=== PATIENT | female | born 1985 | race American Indian/Alaskan Native ===

== ENCOUNTER 2016-12-17 18:37 | Inpatient (IN) | payer MEDICAID, OTHER ==
[2016-12-17 19:56] LABS: Basophils % (Auto) 0.7 % (0.0-1.8); Eosinophils % (Auto) 3.1 % (0.0-4.3); Hematocrit 41.2 % (30.3-42.9); Hemoglobin 13.3 gm/dl (10.1-14.3); Mean Corpuscular HGB Conc 32 % (30-34); Mean Corpuscular Hemoglobin 28 pg (28-32); Mean Corpuscular Volume 87 fl (79-97); Platelet Count 179 K/mm3 (140-440); Red Blood Count 4.74 M/mm3 (3.65-5.03); Red Cell Distribution Width 14.2 % (13.2-15.2); White Blood Count 9.2 K/mm3 (4.5-11.0)
[2016-12-17 20:17] LABS: Anion Gap 26 mmol/L; BUN/Creatinine Ratio 18.75; Blood Urea Nitrogen 15 mg/dL (7-17); Calcium 8.7 mg/dL (8.4-10.2); Carbon Dioxide 17 mmol/L (22-30); Chloride 91.8 mmol/L (98-107); Potassium 4.4 mmol/L (3.6-5.0); Sodium 130 mmol/L (137-145)
[2016-12-17 20:25] LABS: Glucose 508 mg/dL (65-100)
[2016-12-17] MEDS ORDERED: NACL 0.9% 1000 ML 2,000 ML ONE (21:14)
[2016-12-17] MEDS ORDERED: D50W (25GM) IV PRN ×2 (21:38→22:44)
[2016-12-17] MEDS ORDERED: NACL 0.9% 1000 ML 1,000 ML IV ONE ×2 (21:38→21:39)
[2016-12-17] MEDS ORDERED: TORADOL IV ONE (21:45)
[2016-12-17 21:54] LABS: Bacteria,Urine 1+ /HPF (Negative); Bilirubin,Urine NEG (Negative); Blood,Urine SM (Negative); Ketones,Urine 80 mg/dL (Negative); Leukocyte Esterase,Urine NEG (Negative); Mucus,Urine FEW /HPF; Nitrite,Urine NEG (Negative); Protein,Urine <15 mg/dL mg/dL (Negative); RBC,Urine < 1.0 /HPF (0.0-6.0); Urobilinogen,Urine < 2.0 mg/dL (<2.0); WBC,Urine < 1.0 /HPF (0.0-6.0)
[2016-12-17] MEDS ORDERED: NovoLIN R 100 UNITS in NACL 0.9% 99 ML IV SCH (22:00)
--- NOTE | 2016-12-17 22:14 | Emergency Department Report ---
ED General Adult HPI - General Chief complaint: Hyperglycemia Stated complaint: HIGH BLOOD SUGAR Time Seen by Provider: 12/17/16 21:36 Source: patient Mode of arrival: Ambulatory Limitations: No Limitations - History of Present Illness Initial comments: 31-year-old female with a past medical history of insulin-dependent diabetes presents to the hospital complaining of elevated glucose and a running out and sent. Patient uses a Humalog insulin pump and administers boluses 3 times a day dependent on current glucose level and carbohydrate intake with meals. Patient was working for [employer] which unexpectedly closed without warning. Patient tried to receive her Humalog refill from the pharmacy and was told that her insurance was no longer active and the medication will be over $900. Patient could not afford the medication. Patient developing polyuria, nausea, vomiting and generalized fatigue today. History of DKA in the past. She complained of mild to moderate suprapubic menstrual cramps Severity scale (0 -10): 6 - Related Data Home Medications Medication Instructions Recorded Confirmed Last Taken Insulin Pump Cartridge [Cartridge 1 each SQ CONT 12/17/16 12/17/16 1 Day Ago Stamped] Allergies Allergy/AdvReac Type Severity Reaction Status Date / Time No Known Allergies Allergy Verified 06/26/13 20:21 ED Review of Systems ROS: Stated complaint: HIGH BLOOD SUGAR Other details as noted in HPI Comment: All other systems reviewed and negative Other: Constitutional: No fevers chills Eyes: No eye pain visual changes ENT: No ear pain or throat pain Neck: Denies pain Respiratory: Denies cough wheezing shortness of breath Cardiovascular: Denies chest pain GI: as per hpi : Denies dysuria Musculoskeletal: Denies back pain Skin: Denies rash, lesions, erythema Neurologic: Denies headache, numbness, weakness Psychiatric: Denies suicidal ideation, hallucinations ED Past Medical Hx - Past Medical History Previous Medical History?: Yes Hx Diabetes: Yes (IDDM) Hx Headaches / Migraines: Yes - Surgical History Past Surgical History?: No - Social History Smoking Status: Never Smoker Substance Use Type: None - Medications Home Medications: Home Medications Medication Instructions Recorded Confirmed Last Taken Type Insulin Pump Cartridge [Cartridge 1 each SQ CONT 12/17/16 12/17/16 1 Day Ago History Stamped] ED Physical Exam - General Limitations: No Limitations - Other Other exam information: General: No limitations, patient is alert in no acute distress Head exam: Atraumatic, normocephalic Eyes exam: Normal appearance, pupils equal reactive to light, extraocular movements intact ENT: Moist mucous membrane, normal oropharynx Neck exam: Normal inspection, full range of motion, no meningismus nontender Respiratory exam: Clear to auscultation bilateral, no wheezes, rales, crackles Cardiovascular: Normal rate and rhythm, normal heart sounds Abdomen: Soft, nondistended, and nontender, with normal bowel sounds, no rebound, or guarding Extremity: Full range of motion normal inspection no deformity Back: Normal Inspection, full range of motion, no tenderness Neurologic: Alert, oriented x3, cranial nerves intact, no motor or sensory deficit Psychiatric: normal affect, normal mood Skin: Warm, dry, intact ED Course Vital Signs 12/17/16 12/17/16 19:22 21:32 Temperature 98.3 F Pulse Rate 103 H 91 H Respiratory 20 18 Rate Blood Pressure 116/72 Blood Pressure 122/74 [Left] O2 Sat by Pulse 98 99 Oximetry - Reevaluation(s) Reevaluation #1: 12/17/16 22:42 Patient treated in the ED with insulin bolus followed by insulin drip and normal saline 2 L. Placed on DKA protocol ED Medical Decision Making - Lab Data Result diagrams: 12/17/16 19:40 12/17/16 19:40 Lab Results 12/17/16 12/17/16 12/17/16 Range/Units 19:25 19:40 19:40 WBC 9.2 (4.5-11.0) K/mm3 RBC 4.74 (3.65-5.03) M/mm3 Hgb 13.3 (10.1-14.3) gm/dl Hct 41.2 (30.3-42.9) % MCV 87 (79-97) fl MCH 28 (28-32) pg MCHC 32 (30-34) % RDW 14.2 (13.2-15.2) % Plt Count 179 (140-440) K/mm3 Lymph % (Auto) 21.5 (13.4-35.0) % [place] % (Auto) 7.2 (0.0-7.3) % Eos % (Auto) 3.1 (0.0-4.3) % Baso % (Auto) 0.7 (0.0-1.8) % Lymph # 2.0 (1.2-5.4) K/mm3 [place] # 0.7 (0.0-0.8) K/mm3 Eos # 0.3 (0.0-0.4) K/mm3 Baso # 0.1 (0.0-0.1) K/mm3 Seg Neutrophils % 67.5 (40.0-70.0) % Seg Neutrophils # 6.2 (1.8-7.7) K/mm3 VBG pH (7.320-7.420) Sodium 130 L (137-145) mmol/L Potassium 4.4 (3.6-5.0) mmol/L Chloride 91.8 L (98-107) mmol/L Carbon Dioxide 17 L (22-30) mmol/L Anion Gap 26 mmol/L BUN 15 (7-17) mg/dL Creatinine 0.8 (0.7-1.2) mg/dL Estimated GFR > 60 ml/min BUN/Creatinine Ratio 18.75 % Glucose 508 H* (65-100) mg/dL POC Glucose 469 H (70-105) Calcium 8.7 (8.4-10.2) mg/dL Urine Color (Yellow) Urine Turbidity (Clear) Urine pH (5.0-7.0) Ur Specific [place] (1.003-1.030) Urine Protein (Negative) mg/dL Urine Glucose (UA) (Negative) mg/dL Urine Ketones (Negative) mg/dL Urine Blood (Negative) Urine Nitrite (Negative) Urine Bilirubin (Negative) Urine Urobilinogen (<2.0) mg/dL Ur Leukocyte Esterase (Negative) Urine WBC (Auto) (0.0-6.0) /HPF Urine RBC (Auto) (0.0-6.0) /HPF U Epithel Cells (Auto) (0-13.0) /HPF Urine Bacteria (Auto) (Negative) /HPF Urine Mucus /HPF Urine HCG, Qual (Negative) 12/17/16 12/17/16 12/17/16 Range/Units 19:40 21:17 Unknown WBC (4.5-11.0) K/mm3 RBC (3.65-5.03) M/mm3 Hgb (10.1-14.3) gm/dl Hct (30.3-42.9) % MCV (79-97) fl MCH (28-32) pg MCHC (30-34) % RDW (13.2-15.2) % Plt Count (140-440) K/mm3 Lymph % (Auto) (13.4-35.0) % [place] % (Auto) (0.0-7.3) % Eos % (Auto) (0.0-4.3) % Baso % (Auto) (0.0-1.8) % Lymph # (1.2-5.4) K/mm3 [place] # (0.0-0.8) K/mm3 Eos # (0.0-0.4) K/mm3 Baso # (0.0-0.1) K/mm3 Seg Neutrophils % (40.0-70.0) % Seg Neutrophils # (1.8-7.7) K/mm3 VBG pH 7.310 L (7.320-7.420) Sodium (137-145) mmol/L Potassium (3.6-5.0) mmol/L Chloride (98-107) mmol/L Carbon Dioxide (22-30) mmol/L Anion Gap mmol/L BUN (7-17) mg/dL Creatinine (0.7-1.2) mg/dL Estimated GFR ml/min BUN/Creatinine Ratio % Glucose (65-100) mg/dL POC Glucose > 500 H (70-105) Calcium (8.4-10.2) mg/dL Urine Color Straw (Yellow) Urine Turbidity Clear (Clear) Urine pH 6.0 (5.0-7.0) Ur Specific [place] 1.024 (1.003-1.030) Urine Protein <15 mg/dl (Negative) mg/dL Urine Glucose (UA) >=500 (Negative) mg/dL Urine Ketones 80 (Negative) mg/dL Urine Blood Sm (Negative) Urine Nitrite Neg (Negative) Urine Bilirubin Neg (Negative) Urine Urobilinogen < 2.0 (<2.0) mg/dL Ur Leukocyte Esterase Neg (Negative) Urine WBC (Auto) < 1.0 (0.0-6.0) /HPF Urine RBC (Auto) < 1.0 (0.0-6.0) /HPF U Epithel Cells (Auto) 1.0 (0-13.0) /HPF Urine Bacteria (Auto) 1+ (Negative) /HPF Urine Mucus Few /HPF Urine HCG, Qual (Negative) 12/17/16 Range/Units Unknown WBC (4.5-11.0) K/mm3 RBC (3.65-5.03) M/mm3 Hgb (10.1-14.3) gm/dl Hct (30.3-42.9) % MCV (79-97) fl MCH (28-32) pg MCHC (30-34) % RDW (13.2-15.2) % Plt Count (140-440) K/mm3 Lymph % (Auto) (13.4-35.0) % [place] % (Auto) (0.0-7.3) % Eos % (Auto) (0.0-4.3) % Baso % (Auto) (0.0-1.8) % Lymph # (1.2-5.4) K/mm3 [place] # (0.0-0.8) K/mm3 Eos # (0.0-0.4) K/mm3 Baso # (0.0-0.1) K/mm3 Seg Neutrophils % (40.0-70.0) % Seg Neutrophils # (1.8-7.7) K/mm3 VBG pH (7.320-7.420) Sodium (137-145) mmol/L Potassium (3.6-5.0) mmol/L Chloride (98-107) mmol/L Carbon Dioxide (22-30) mmol/L Anion Gap mmol/L BUN (7-17) mg/dL Creatinine (0.7-1.2) mg/dL Estimated GFR ml/min BUN/Creatinine Ratio % Glucose (65-100) mg/dL POC Glucose (70-105) Calcium (8.4-10.2) mg/dL Urine Color (Yellow) Urine Turbidity (Clear) Urine pH (5.0-7.0) Ur Specific [place] (1.003-1.030) Urine Protein (Negative) mg/dL Urine Glucose (UA) (Negative) mg/dL Urine Ketones (Negative) mg/dL Urine Blood (Negative) Urine Nitrite (Negative) Urine Bilirubin (Negative) Urine Urobilinogen (<2.0) mg/dL Ur Leukocyte Esterase (Negative) Urine WBC (Auto) (0.0-6.0) /HPF Urine RBC (Auto) (0.0-6.0) /HPF U Epithel Cells (Auto) (0-13.0) /HPF Urine Bacteria (Auto) (Negative) /HPF Urine Mucus /HPF Urine HCG, Qual Negative (Negative) - Medical Decision Making Plan to admit patient to the hospital for early DKA likely secondary medication noncompliance. Patient would need a new plan for more affordable medications and possible help with Medicaid application. - Differential Diagnosis DKA, hyperglycemia, medication noncompliance Critical Care Time: No Critical care attestation.: If time is entered above; I have spent that time in minutes in the direct care of this critically ill patient, excluding procedure time. ED Disposition Clinical Impression: DKA (diabetic ketoacidoses), Diabetes 1.5, managed as type 1, Noncompliance with medication regimen Disposition: OP ADMITTED IP TO THIS HOSP Is pt being admited?: Yes Condition: Stable Time of Disposition: 22:14 (Dr Hunter/hosp)
[2016-12-17] MEDS ORDERED: DULCOLAX PR PRN (22:39)
[2016-12-17] MEDS ORDERED: PERCOCET 5/325 PO PRN (22:39)
[2016-12-17] MEDS ORDERED: TYLENOL PO PRN (22:39)
[2016-12-17] MEDS ORDERED: MILK OF MAGNESIA PO PRN (22:39)
[2016-12-17] MEDS ORDERED: ZOFRAN IV PRN (22:39)
--- NOTE | 2016-12-17 22:46 | History and Physical Report ---
History of Present Illness Date of examination: 12/17/16 History of present illness: 31-year-old woman history of diabetes type 1 comes emergency room with complaints of nausea vomiting, feeling tired, frequent urination. Patient ran out of her insulin Patient denies chest pain, palpitation, shortness of breath, cough, abdominal pain, hematochezia, dysuria, focal weakness, dysarthria, fever chills, polydipsia polyuria, hot or cold intolerance, easy bruisability, or rash or bleeding from mucosal membrane, rhinorrhea, epistaxis, earache, tinnitus, blurry vision, eye discharge, anxiety, depression. Other review of systems negative PAST SURGICAL HISTORY: None SOCIAL HISTORY: Denies alcohol, tobacco, drugs FAMILY HISTORY: Diabetes Medications and Allergies Allergies Allergy/AdvReac Type Severity Reaction Status Date / Time No Known Allergies Allergy Verified 06/26/13 20:21 Home Medications Medication Instructions Recorded Confirmed Last Taken Type Insulin Pump Cartridge [Cartridge 1 each SQ CONT 12/17/16 12/17/16 1 Day Ago History Stamped] Active Meds: Active Medications Acetaminophen (Tylenol) 650 mg PO Q4H PRN PRN Reason: Pain MILD(1-3)/Fever >100.5/BERGMAN Bisacodyl (Dulcolax) 10 mg [place] QDAY PRN PRN Reason: Constipation unrelieved by MOM Dextrose (D50w (25gm)) 0 ml IV PRN PRN PRN Reason: Hypoglycemia Enoxaparin Sodium (Lovenox) 30 mg SUB-Q QDAY ZEHRA Insulin Human Regular 100 (units/ Sodium Chloride) 100 mls @ 1 mls/hr IV TITR ZEHRA; 1 UNITS/HR PRN Reason: Protocol Dextrose/Sodium Chloride (D5/0.45ns) 1,000 mls @ 150 mls/hr IV DIRECT ZEHRA Sodium Chloride (Nacl 0.9% 1000 Ml) 1,000 mls @ 150 mls/hr IV DIRECT ZEHRA Magnesium Hydroxide (Milk Of Magnesia) 30 ml PO Q4H PRN PRN Reason: Constipation Ondansetron HCl (Zofran) 4 mg IV Q8H PRN PRN Reason: N/V unrelieved by Reglan Oxycodone/Acetaminophen (Percocet 5/325) 1 tab PO Q6H PRN PRN Reason: Pain, Moderate (4-6) Exam - Physical Exam Narrative exam: Gen. appearance: Patient lying in bed, no apparent distress HEENT: Normocephalic, atraumatic, pupils equally round and reactive to light, extraocular movement intact, and no sclericterus,. No JVD or thyromegaly or nodule,neck supple, no carotid bruit ,mucous membranes moist, no exudate or erythema Heart: S1, S2, regular rate and rhythm Lungs: Clear to auscultation bilaterally, breathing comfortable Abdomen: Positive bowel sounds, nontender, nondistended, no organomegaly Extremity: No edema, cyanosis, clubbing Skin: No rash, nodules, warm, dry Neuro: Oriented 3, cranial nerves II-12 intact, speech is fluent, motor and sensory intact - Constitutional Vitals: Temp Pulse Resp BP Pulse Ox 98.3 F 91 H 18 122/74 99 12/17/16 19:22 12/17/16 21:32 12/17/16 21:32 12/17/16 21:32 12/17/16 21:32 Results - Labs CBC & Chem 7: 12/17/16 19:40 12/17/16 23:02 Labs: Abnormal lab results 12/17/16 12/17/16 12/17/16 Range/Units 19:25 19:40 19:40 VBG pH 7.310 L (7.320-7.420) Sodium 130 L (137-145) mmol/L Chloride 91.8 L (98-107) mmol/L Carbon Dioxide 17 L (22-30) mmol/L Glucose 508 H* (65-100) mg/dL POC Glucose 469 H (70-105) 12/17/16 Range/Units 21:17 VBG pH (7.320-7.420) Sodium (137-145) mmol/L Chloride (98-107) mmol/L Carbon Dioxide (22-30) mmol/L Glucose (65-100) mg/dL POC Glucose > 500 H (70-105) Assessment and Plan DKA Start IV fluids, insulin drip Check serial chemistry, blood sugar Consult critical care, start DVT prophylaxis
[2016-12-17] MEDS ORDERED: D5/0.45NS 1,000 ML IV SCH (23:00)
[2016-12-17 23:49] LABS: Anion Gap 22 mmol/L; Blood Urea Nitrogen 14 mg/dL (7-17); Carbon Dioxide 16 mmol/L (22-30); Chloride 101.9 mmol/L (98-107); Glucose 311 mg/dL (65-100); Potassium 3.7 mmol/L (3.6-5.0); Sodium 136 mmol/L (137-145)
[2016-12-18] MEDS: NACL 0.9% 1000 ML 1,000 ML IV SCH (00:40)
[2016-12-18 04:30] LABS: Anion Gap 19 mmol/L; BUN/Creatinine Ratio 18.33; Blood Urea Nitrogen 11 mg/dL (7-17); Calcium 7.6 mg/dL (8.4-10.2); Carbon Dioxide 17 mmol/L (22-30); Chloride 103.9 mmol/L (98-107); Glucose 161 mg/dL (65-100); Potassium 3.9 mmol/L (3.6-5.0); Sodium 136 mmol/L (137-145)
[2016-12-18 04:41] LABS: Red Blood Count 4.02 M/mm3 (3.65-5.03); White Blood Count 8.8 K/mm3 (4.5-11.0)
[2016-12-18 04:42] LABS: Hematocrit 36.2 % (30.3-42.9); Hemoglobin 12.4 gm/dl (10.1-14.3)
[2016-12-18 04:43] LABS: Basophils % (Auto) 0.7 % (0.0-1.8); Eosinophils % (Auto) 3.1 % (0.0-4.3); Mean Corpuscular HGB Conc 34 % (30-34); Mean Corpuscular Hemoglobin 28 pg (28-32); Mean Corpuscular Volume 85 fl (79-97); Platelet Count 178 K/mm3 (140-440)
--- NOTE | 2016-12-18 07:03 | Admit Criteria Form ---
Admission Criteria Documentation: DIABETES Clinical Indications for Admission to Inpatient Care (Place 'X' for any and all applicable criteria): Admission is indicated by presence of ALL (if I & II) or ANY ONE (if III or IV) of the following (1)(2)(3)(4): [X ]I. Diabetes is uncontrolled as indicated by ANY ONE of the following: [X ]a) Diabetic ketoacidosis as indicated by ALL of the following (8): [ X]i) Hyperglycemia (eg, plasma glucose greater than 200 mg /dL (11.1 mmol/L)) [ X]ii) Acidosis (eg, arterial pH less than 7.30, serum bicarbonate level less than 15 mEq/L (mmol/L)) [ X]iii) Moderate ketonuria or ketonemia [ ]b) Hyperglycemic hyperosmolar state as indicated by ALL of the following(9)(10): [ ]i) Neurologic dysfunction (eg, stupor, coma, hemiparesis , seizure)(13) [ ]ii) Plasma glucose greater than 600 mg/dL (33.3 mmol/L) [ ]iii) Serum osmolality greater than 320 mOsm/kg (mmol/kg) [ ]c) Severe signs or symptoms secondary to hyperglycemia indicated by ANY ONE of the following: [ ]i) Altered mental status(10) [ ]ii) Significant hypovolemia or dehydration [ ]iii) Intractable nausea or vomiting [ ]iv) Unexplained fever or severe infection [ ]v) Severe electrolyte abnormality (eg, hypokalemia, hyperkalemia, hypernatremia) [X ]II. Management at other levels of care (Also use Diabetes: Observation Care as appropriate) is not feasible because of ANY ONE of the following: [X ]a) Condition was not adequately corrected with treatment at other levels of care. [ ]b) Treatment at other levels of care is not appropriate because of condition severity (eg, hyperosmolar coma). [ ]III. Contraindications and/or Inappropriate clinical situations for Observational Care in patients with Diabetes, when ANY ONE of the following is required: [ ]a) Patient require specific diagnostic workup or therapeutic intervention 22 [ ]b) Patient with abnormal vital signs or altered mental status 23 [ ]IV. General contraindications and/or Inappropriate clinical situations for Observational Care in patients with Diabetes, when ANY ONE of the following is required: [ ]a) Prediction of prolongation of LOS based on ANY ONE of the following may be considered as a contraindication for observational care 2, 3, 4, 5, 6, 7, 8, 9, 10, 11 [ ]i) Age > 65 yrs. [ ]ii) Patient arriving by ambulance [ ]iii) Patient with high acuity [ ]iv) Patient requiring vital sign monitoring [ ]v) Patient on IV medication [ ]b) Systolic blood pressures 180mmHg 3,12 [ ]c) Patient with altered mental status including delirium and other alteration of consciousness, (3) [ ]d) Patient whose discharge disposition will be to a residential home or rehabilitation home should not be managed in Emergency Department Observation Unit. CMS rule requires 3 days hospital stay before such placement.3,13 [ ]e) Patient with failure to thrive due to broad array of etiologies 3,16,17 [ ]f) Inability to ambulate 3,14 Extended stay beyond goal length of stay may be needed for(3)(20): [ ]a) Treatment of precipitating causes [ ]b) Development of hypoglycemia [ ]c) Complications of treatment [ ]d) Complications of decompensated diabetes (eg, acute gastric dilatation, persistent metabolic or neurologic derangement) [ ]e) Active Comorbidities [ ]f) Older patients( 65 years or older) The original [employer] content created by [employer] has been revised. The portions of the content which have been revised are identified through the use of italic text or in bold,and [facility] has neither reviewed nor approved the modified material. All other unmodified content is copyright [employer]. Please see references footnoted in the original [facility] edition 2016 Admission Criteria Met: Yes
[2016-12-18] MEDS ORDERED: NOVOLOG SUB-Q ONE ×3 (08:46→19:52)
[2016-12-18 09:31] LABS: Anion Gap 16 mmol/L; BUN/Creatinine Ratio 12.85; Blood Urea Nitrogen 9 mg/dL (7-17); Calcium 8.1 mg/dL (8.4-10.2); Carbon Dioxide 21 mmol/L (22-30); Chloride 105.9 mmol/L (98-107); Glucose 137 mg/dL (65-100); Potassium 4.1 mmol/L (3.6-5.0); Sodium 139 mmol/L (137-145)
[2016-12-18] MEDS: LOVENOX SUB-Q SCH (09:56)
[2016-12-18] MEDS ORDERED: D50W (25GM) IV PRN (10:00)
[2016-12-18] MEDS ORDERED: LOVENOX SUB-Q SCH (10:00)
[2016-12-18] MEDS: NOVOLOG SUB-Q SCH ×3 (11:51→23:00)
--- NOTE | 2016-12-18 14:19 | Progress Note ---
Assessment and Plan Assessment and plan: 31-year-old woman history of diabetes type 1 comes emergency room with complaints of nausea vomiting, feeling tired, frequent urination. Patient ran out of her insulin * DKA * Diabetes mellitus type 1 Plan * Switch to scheduled insulin * Downgrade to med surg * counselling provided in detail * Anticipate discharge in am * Case management consult for social service support * DVT/GI prophy * Plan of care discussed with patient in detail History Interval history: Patient seen and examined, in no acute distress. Resting comfortable. No other acute event reported today by nursing staff. Hospitalist Physical - Physical exam Narrative exam: VITAL SIGNS: Reviewed. GENERAL: The patient appeared well nourished and normally developed. Vital signs as documented. HEAD: No signs of head trauma. EYES: Pupils are equal. Extraocular motions intact. EARS: Hearing grossly intact. MOUTH: Oropharynx is normal. NECK: No adenopathy, no JVD. CHEST: Chest with clear breath sounds bilaterally. No wheezes, rales, or rhonchi. CARDIAC: Regular rate and rhythm. S1 and S2, without murmurs, gallops, or rubs. VASCULAR: No Edema. Peripheral pulses normal and equal in all extremities. ABDOMEN: Soft, without detectable tenderness. No sign of distention. No rebound or guarding, and no masses palpated. Bowel Sounds normal. MUSCULOSKELETAL: Good range of motion of all major joints. Extremities without clubbing, cyanosis or edema. NEUROLOGIC EXAM: Alert and oriented x 3. No focal sensory or strength deficits. Speech normal. Follows commands. PSYCHIATRIC: Mood normal. SKIN: No rash or lesions. - Constitutional Vitals: Temp Pulse Resp BP Pulse Ox 98.3 F 91 H 18 126/94 98 12/17/16 19:22 12/18/16 13:00 12/18/16 13:00 12/18/16 13:00 12/18/16 13:00 Results - Labs CBC & Chem 7: 12/18/16 03:52 12/18/16 08:47 Labs: Laboratory Last Values WBC 8.8 K/mm3 (4.5-11.0) 12/18/16 03:52 RBC 4.02 M/mm3 (3.65-5.03) 12/18/16 03:52 Hgb 12.4 gm/dl (10.1-14.3) 12/18/16 03:52 Hct 36.2 % (30.3-42.9) 12/18/16 03:52 MCV 85 fl (79-97) 12/18/16 03:52 MCH 28 pg (28-32) 12/18/16 03:52 MCHC 34 % (30-34) 12/18/16 03:52 RDW 14.0 % (13.2-15.2) 12/18/16 03:52 Plt Count 178 K/mm3 (140-440) 12/18/16 03:52 Lymph % (Auto) 29.0 % (13.4-35.0) 12/18/16 03:52 [place] % (Auto) 10.5 % (0.0-7.3) H 12/18/16 03:52 Eos % (Auto) 3.1 % (0.0-4.3) 12/18/16 03:52 Baso % (Auto) 0.7 % (0.0-1.8) 12/18/16 03:52 Lymph # 2.5 K/mm3 (1.2-5.4) 12/18/16 03:52 [place] # 0.9 K/mm3 (0.0-0.8) H 12/18/16 03:52 Eos # 0.3 K/mm3 (0.0-0.4) 12/18/16 03:52 Baso # 0.1 K/mm3 (0.0-0.1) 12/18/16 03:52 Seg Neutrophils % 56.7 % (40.0-70.0) 12/18/16 03:52 Seg Neutrophils # 5.0 K/mm3 (1.8-7.7) 12/18/16 03:52 VBG pH 7.310 (7.320-7.420) L 12/17/16 19:40 Sodium 139 mmol/L (137-145) 12/18/16 08:47 Potassium 4.1 mmol/L (3.6-5.0) 12/18/16 08:47 Chloride 105.9 mmol/L (98-107) 12/18/16 08:47 Carbon Dioxide 21 mmol/L (22-30) L 12/18/16 08:47 Anion Gap 16 mmol/L 12/18/16 08:47 BUN 9 mg/dL (7-17) 12/18/16 08:47 Creatinine 0.7 mg/dL (0.7-1.2) 12/18/16 08:47 Estimated GFR > 60 ml/min 12/18/16 08:47 BUN/Creatinine Ratio 12.85 % 12/18/16 08:47 Glucose 137 mg/dL (65-100) H 12/18/16 08:47 POC Glucose 141 (70-105) H 12/18/16 08:43 Hemoglobin A1c 9.0 % (4-6) H 12/17/16 23:02 Calcium 8.1 mg/dL (8.4-10.2) L 12/18/16 08:47 Phosphorus 2.40 mg/dL (2.5-4.5) L 12/17/16 23:02 Magnesium 1.80 mg/dL (1.7-2.3) 12/17/16 23:02 Urine Color Straw (Yellow) 12/17/16 Unknown Urine Turbidity Clear (Clear) 12/17/16 Unknown Urine pH 6.0 (5.0-7.0) 12/17/16 Unknown Ur Specific [place] 1.024 (1.003-1.030) 12/17/16 Unknown Urine Protein <15 mg/dl mg/dL (Negative) 12/17/16 Unknown Urine Glucose (UA) >=500 mg/dL (Negative) 12/17/16 Unknown Urine Ketones 80 mg/dL (Negative) 12/17/16 Unknown Urine Blood Sm (Negative) 12/17/16 Unknown Urine Nitrite Neg (Negative) 12/17/16 Unknown Urine Bilirubin Neg (Negative) 12/17/16 Unknown Urine Urobilinogen < 2.0 mg/dL (<2.0) 12/17/16 Unknown Ur Leukocyte Esterase Neg (Negative) 12/17/16 Unknown Urine WBC (Auto) < 1.0 /HPF (0.0-6.0) 12/17/16 Unknown Urine RBC (Auto) < 1.0 /HPF (0.0-6.0) 12/17/16 Unknown U Epithel Cells (Auto) 1.0 /HPF (0-13.0) 12/17/16 Unknown Urine Bacteria (Auto) 1+ /HPF (Negative) 12/17/16 Unknown Urine Mucus Few /HPF 12/17/16 Unknown Urine HCG, Qual Negative (Negative) 12/17/16 Unknown
[2016-12-18 16:49] LABS: Anion Gap 19 mmol/L; BUN/Creatinine Ratio 11.11; Blood Urea Nitrogen 10 mg/dL (7-17); Calcium 8.3 mg/dL (8.4-10.2); Carbon Dioxide 21 mmol/L (22-30); Chloride 97.7 mmol/L (98-107); Glucose 438 mg/dL (65-100); Potassium 4.5 mmol/L (3.6-5.0); Sodium 133 mmol/L (137-145)
[2016-12-18] MEDS ORDERED: NACL 0.9% 1000 ML 1,000 ML IV ONE ×2 (19:45→22:58)
[2016-12-18 21:56] LABS: Anion Gap 15 mmol/L; BUN/Creatinine Ratio 14.44; Blood Urea Nitrogen 13 mg/dL (7-17); Calcium 8.4 mg/dL (8.4-10.2); Carbon Dioxide 23 mmol/L (22-30); Chloride 100.3 mmol/L (98-107); Glucose 357 mg/dL (65-100); Potassium 3.8 mmol/L (3.6-5.0); Sodium 134 mmol/L (137-145)
[2016-12-18 23:42] LABS: Anion Gap 16 mmol/L; BUN/Creatinine Ratio 15.71; Blood Urea Nitrogen 11 mg/dL (7-17); Carbon Dioxide 21 mmol/L (22-30); Chloride 103.7 mmol/L (98-107); Glucose 268 mg/dL (65-100); Potassium 4.1 mmol/L (3.6-5.0); Sodium 137 mmol/L (137-145)
[2016-12-19] MEDS ORDERED: NACL 0.9% 1000 ML 1,000 ML IV ONE (01:00)
[2016-12-19] MEDS: NACL 0.9% 1000 ML 1,000 ML IV SCH (06:33)
--- NOTE | 2016-12-19 07:07 | Discharge Summary ---
Providers - Providers Date of Admission: 12/17/16 22:39 Date of discharge: 12/19/16 Attending physician: TY AGUIRRE MD Hospitalization Reason for admission: dka Condition: Stable Hospital course: 31-year-old woman history of diabetes type 1 comes emergency room with complaints of nausea vomiting, feeling tired, frequent urination. Patient ran out of her insulin, she uses insulin pump but ran out and also is not complaint with diet. she was started on protocol and corrected and is now stable for discharge. the patient continued while in the hospital to get lots of food from outside and received extensive counselling on need to change. Patient denies chest pain, palpitation, shortness of breath, cough, abdominal pain, hematochezia, dysuria, focal weakness, dysarthria, fever chills, polydipsia polyuria, hot or cold intolerance, easy bruisability, or rash or bleeding from mucosal membrane, rhinorrhea, epistaxis, earache, tinnitus, blurry vision, eye discharge, anxiety, depression. Other review of systems negative Discharge Diagnosis * DKA * Uncontrolled Type 1 DM * Sinus tachycardia secondary to DKA Disposition: DISCHARGED TO HOME OR SELFCARE Time spent for discharge: 35 mins Core Measure Documentation - Palliative Care Palliative Care/ Comfort Measures: Palliative Care/Comfort Measures - Core Measures Any of the following diagnoses?: none - VTE Discharge Requirements Deep Vein Thrombosis/Pulmonary Embolism Present on Admission: No Exam - Physical Exam Narrative exam: VITAL SIGNS: Reviewed. GENERAL: The patient appeared well nourished and normally developed. Vital signs as documented. HEAD: No signs of head trauma. EYES: Pupils are equal. Extraocular motions intact. EARS: Hearing grossly intact. MOUTH: Oropharynx is normal. NECK: No adenopathy, no JVD. CHEST: Chest with clear breath sounds bilaterally. No wheezes, rales, or rhonchi. CARDIAC: Regular rate and rhythm. S1 and S2, without murmurs, gallops, or rubs. VASCULAR: No Edema. Peripheral pulses normal and equal in all extremities. ABDOMEN: Soft, without detectable tenderness. No sign of distention. No rebound or guarding, and no masses palpated. Bowel Sounds normal. MUSCULOSKELETAL: Good range of motion of all major joints. Extremities without clubbing, cyanosis or edema. NEUROLOGIC EXAM: Alert and oriented x 3. No focal sensory or strength deficits. Speech normal. Follows commands. PSYCHIATRIC: Mood normal. SKIN: No rash or lesions. - Constitutional Vitals: Temp Pulse Resp BP Pulse Ox 97.9 F 109 H 20 136/90 96 12/18/16 23:56 12/18/16 23:56 12/18/16 23:56 12/18/16 23:56 12/18/16 23:56 Plan Activity: advance as tolerated, fall precautions Diet: diabetic Special Instructions: record blood sugar diary Additional Instructions: If pateint cannot obtain or continue insulin pump due to cost. She should change to 70/30 bid. Must be complaint with diabetic diet. Must have yearly podiatry and opthalmologist exam Follow up with: RADHA MELENDEZ [Other] - 7 Days Prescriptions: Insulin NPH/Regular [NovoLIN 70/30] 15 unit SUB-Q BIDDIAB 30 Days
[2016-12-19] MEDS: NOVOLOG SUB-Q SCH ×2 (07:55→12:41)
[2016-12-19 09:17] VITALS: BP 106/65
[2016-12-19] MEDS: LOVENOX SUB-Q SCH (09:42)
== END 2016-12-19 14:50 | disposition home or self-care (01) | DRG 639 ==
LOC: ED 18:37 → CC1 22:39 → 3A 12-18 14:26
PROVIDERS: ADMIT Internal Medicine; ATTEND Internal Medicine
DX: E10.10 Type 1 diabetes mellitus with ketoacidosis without coma (principal); R00.0 Tachycardia, unspecified; Z51.5 Encounter for palliative care; Z79.4 Long term (current) use of insulin; Z91.14 Patient's other noncompliance with medication regimen; Z91.11 Patient's noncompliance with dietary regimen; Z83.3 Family history of diabetes mellitus
CPT/HCPCS: 36415; 80048; 81001; 81025; 82805; 82947; 82962; 83036; 83735; 84100; 85025; 96361; 96372; 96374; 96375; J1650; J1815; J1885; J2405; J7030

== ENCOUNTER 2017-08-06 19:05 | Emergency (ER) | payer MEDICAID ==
[2017-08-06 21:24] VITALS: BP 132/98
[2017-08-06] MEDS ORDERED: ULTRAM PO ONE (22:03)
[2017-08-06] MEDS ORDERED: BICILLIN L-A IM ONE (22:03)
--- NOTE | 2017-08-06 22:06 | Emergency Department Report ---
ED ENT HPI - General Chief complaint: Dental/Oral Stated complaint: TOOTHACHE Time Seen by Provider: 08/06/17 22:01 Source: patient Mode of arrival: Ambulatory Limitations: No Limitations - History of Present Illness MD complaint: tooth pain -: Sudden, days(s) Severity: moderate Quality: crushing Consistency: constant Improves with: none Worsens with: eating Context- Dental: history of dental caries Associated Symptoms: toothache. denies: fever, cough, gum swelling, pain with swallowing, sore throat, tinnitus, hearing loss, discharge from ear, rhinorrhea - Related Data Previous Rx's Medication Instructions Recorded Last Taken Type Insulin NPH/Regular [NovoLIN 70/30] 15 unit SUB-Q BIDDIAB 30 Days 12/19/16 Unknown Rx units Amoxicillin 500 mg PO BID #20 capsule 08/06/17 Unknown Rx Naproxen [Naprosyn] 500 mg PO BID PRN #20 tablet 08/06/17 Unknown Rx Allergies Allergy/AdvReac Type Severity Reaction Status Date / Time No Known Allergies Allergy Verified 06/26/13 20:21 ED Dental HPI - General Chief complaint: Dental/Oral Stated complaint: TOOTHACHE Time Seen by Provider: 08/06/17 22:01 Source: patient Mode of arrival: Ambulatory Limitations: No Limitations - Related Data Previous Rx's Medication Instructions Recorded Last Taken Type Insulin NPH/Regular [NovoLIN 70/30] 15 unit SUB-Q BIDDIAB 30 Days 12/19/16 Unknown Rx units Amoxicillin 500 mg PO BID #20 capsule 08/06/17 Unknown Rx Naproxen [Naprosyn] 500 mg PO BID PRN #20 tablet 08/06/17 Unknown Rx Allergies Allergy/AdvReac Type Severity Reaction Status Date / Time No Known Allergies Allergy Verified 06/26/13 20:21 ED Review of Systems ROS: Stated complaint: TOOTHACHE Other details as noted in HPI Comment: All other systems reviewed and negative ENT: dental pain ED Past Medical Hx - Past Medical History Hx Diabetes: Yes Hx Headaches / Migraines: Yes - Surgical History Past Surgical History?: No - Social History Smoking Status: Never Smoker Substance Use Type: None - Medications Home Medications: Home Medications Medication Instructions Recorded Confirmed Last Taken Type Insulin NPH/Regular [NovoLIN 70/30] 15 unit SUB-Q BIDDIAB 30 Days 12/19/16 Unknown Rx units Amoxicillin 500 mg PO BID #20 capsule 08/06/17 Unknown Rx Naproxen [Naprosyn] 500 mg PO BID PRN #20 tablet 08/06/17 Unknown Rx ED Physical Exam - General Limitations: No Limitations General appearance: alert - Head Head exam: Present: atraumatic - Eye Eye exam: Present: PERRL - ENT ENT exam: Present: normal exam - Expanded ENT Exam Expanded Mouth exam: Absent: drooling, trismus, muffled voice, tongue normal, tongue elevation Teeth exam: Present: normal inspection, dental caries 1 - Other (caries) Throat exam: Positive: normal inspection. Negative: tonsillar erythema, tonsillomegaly, tonsillar exudate, R peritonsillar mass, L peritonsillar mass - Neck Neck exam: Present: normal inspection, full ROM. Absent: tenderness, meningismus, lymphadenopathy, thyromegaly - Respiratory Respiratory exam: Present: normal lung sounds bilaterally - Cardiovascular Cardiovascular Exam: Present: regular rate - GI/Abdominal GI/Abdominal exam: Present: soft - Rectal Rectal exam: Present: deferred - Extremities Exam Extremities exam: Present: normal inspection - Back Exam Back exam: Present: normal inspection - Neurological Exam Neurological exam: Present: alert, oriented X3 - Psychiatric Psychiatric exam: Present: normal affect - Skin Skin exam: Present: warm, dry ED Course Vital Signs 08/06/17 21:21 Temperature 99.2 F Pulse Rate 85 Respiratory 17 Rate Blood Pressure 132/98 O2 Sat by Pulse 99 Oximetry ED Medical Decision Making - Medical Decision Making see note dm bs 120 p eating today - Differential Diagnosis dental caries wo abscess Critical care attestation.: If time is entered above; I have spent that time in minutes in the direct care of this critically ill patient, excluding procedure time. ED Disposition Clinical Impression: Diabetes 1.5, managed as type 1, Diabetes, Dental caries Disposition: DC- TO HOME OR SELFCARE Is pt being admited?: No Does the pt Need Aspirin: No Condition: Stable Instructions: Dental Caries (ED), Toothache (ED) Additional Instructions: see dentist obi monitor your blood sugar diabetic diet med as ordered here today see list of dentists they may be able to see you sooner than yours return to ER if you get a fever that does not come down with motrin or tylenol; if you can not swallow; or if you blood sugar is very high or low hydrate well Referrals: MARS VALLECILLO MD [Primary Care Provider] - 3-5 Days Time of Disposition: 22:03
[2017-08-06] MEDS ORDERED: MOTRIN PO ONE (22:07)
== END 2017-08-06 22:29 | disposition home or self-care (01) ==
LOC: ED 19:05
DX: K02.9 Dental caries, unspecified (principal); E10.8 Type 1 diabetes mellitus with unspecified complications; G43.909 Migraine, unspecified, not intractable, without status migrainosus
CPT/HCPCS: 96372; 99282; J0561

== ENCOUNTER 2018-01-14 08:53 | Emergency (ER) | payer MEDICAID ==
[2018-01-14 09:04] VITALS: BP 127/84
--- NOTE | 2018-01-14 10:05 | Emergency Department Report ---
ED Female HPI - General Chief complaint: Hyperglycemia Stated complaint: BLOOD SUGAR HIGH Time Seen by Provider: 01/14/18 09:18 Source: patient Mode of arrival: Ambulatory Limitations: No Limitations - History of Present Illness Initial comments: 32-year-old female with a past medical history is significant for diabetes currently on insulin pump presents to the Hospital complaining of a possible yeast infection. Patient states her sugars have been running higher than normal due to pump since her malfunction and she is scheduled to get a new pump in the next several days. Patient is having thick clumpy white vaginal discharge, moderate burning pain, itching for the last 5 days. Patient used a one-day Monistat without relief. Patient also was discussed concern for possible STD because her partner recently had sex without a condom for the first time. No complaints of fever, nausea, or vomiting. - Related Data Previous Rx's Medication Instructions Recorded Last Taken Type Insulin NPH/Regular [NovoLIN 70/30] 15 unit SUB-Q BIDDIAB 30 Days 12/19/16 Unknown Rx units Amoxicillin 500 mg PO BID #20 capsule 08/06/17 Unknown Rx Naproxen [Naprosyn] 500 mg PO BID PRN #20 tablet 08/06/17 Unknown Rx Fluconazole [Diflucan TAB] 150 mg PO Q72HR #2 tablet 01/14/18 Unknown Rx metroNIDAZOLE [Flagyl] 500 mg PO Q12HR #14 tab 01/14/18 Unknown Rx Allergies Allergy/AdvReac Type Severity Reaction Status Date / Time No Known Allergies Allergy Verified 06/26/13 20:21 ED Review of Systems ROS: Stated complaint: BLOOD SUGAR HIGH Other details as noted in HPI Comment: All other systems reviewed and negative ED Past Medical Hx - Past Medical History Previous Medical History?: Yes Hx Diabetes: Yes Hx Headaches / Migraines: Yes - Surgical History Past Surgical History?: No - Social History Smoking Status: Never Smoker Substance Use Type: Alcohol, Prescribed - Medications Home Medications: Home Medications Medication Instructions Recorded Confirmed Last Taken Type Insulin NPH/Regular [NovoLIN 70/30] 15 unit SUB-Q BIDDIAB 30 Days 12/19/16 Unknown Rx units Amoxicillin 500 mg PO BID #20 capsule 08/06/17 Unknown Rx Naproxen [Naprosyn] 500 mg PO BID PRN #20 tablet 08/06/17 Unknown Rx Fluconazole [Diflucan TAB] 150 mg PO Q72HR #2 tablet 01/14/18 Unknown Rx metroNIDAZOLE [Flagyl] 500 mg PO Q12HR #14 tab 01/14/18 Unknown Rx ED Physical Exam - General Limitations: No Limitations - Other Other exam information: General: No limitations, patient is alert in no acute distress Head exam: Atraumatic, normocephalic Eyes exam: Normal appearance ENT: Moist mucous membrane, normal oropharynx Neck exam: Normal inspection, full range of motion, no meningismus nontender Respiratory exam: Clear to auscultation bilateral, no wheezes, rales, crackles Cardiovascular: Normal rate and rhythm, normal heart sounds Abdomen: Soft, nondistended, and nontender, with normal bowel sounds, no rebound, or guarding : Thick white clumpy vaginal discharge. No CMT or adnexal tenderness Extremity: Full range of motion normal inspection no deformity Back: Normal Inspection, full range of motion, no tenderness Neurologic: Alert, oriented x3, cranial nerves intact, no motor or sensory deficit Psychiatric: normal affect, normal mood Skin: Warm, dry, intact ED Course Vital Signs 01/14/18 09:01 Temperature 99 F Pulse Rate 89 Respiratory 18 Rate Blood Pressure 127/84 O2 Sat by Pulse 100 Oximetry ED Medical Decision Making - Lab Data Lab Results 01/14/18 01/14/18 Range/Units 09:04 10:06 POC Glucose 215 H (70-105) Urine HCG, Qual Negative (Negative) - Medical Decision Making Wet prep positive for yeast and bacterial vaginosis patient will be prescribed medications for both Gonorrhea and chlamydia test pending Mild hyperglycemia without clinical symptoms of DKA Outpatient follow-up with PMD and BROKE BEATER advice - Differential Diagnosis vaginitis, cervicitis, yeast infection Critical Care Time: No Critical care attestation.: If time is entered above; I have spent that time in minutes in the direct care of this critically ill patient, excluding procedure time. ED Disposition Clinical Impression: Yeast vaginitis, Bacterial vaginosis, Diabetes 1.5, managed as type 1 Disposition: DC-01 TO HOME OR SELFCARE Is pt being admited?: No Does the pt Need Aspirin: No Condition: Stable Instructions: Bacterial Vaginosis (ED), Vulvovaginal Candidiasis (ED), Diabetes Mellitus Type 2 in Adults (ED) Additional Instructions: Take the medication as prescribed. Follow-up with the BROKE BEATER and primary care doctor. Return if symptoms worsen as indicated by your discharge instructions. Your gonorrhea and chlamydia tests are pending and take approximately 3-4 days result. You may obtain results in medical records with a photo ID. You may also obtain results through the follow-up doctor office via medical record request. Prescriptions: Fluconazole [Diflucan TAB] 150 mg PO Q72HR #2 tablet metroNIDAZOLE [Flagyl] 500 mg PO Q12HR #14 tab Referrals: PRIMARY CARE,MD [Primary Care Provider] - 3-5 Days your, order packer [Other] - 3-5 Days Forms: STI Treatment and Prevention Time of Disposition: 10:44
[2018-01-14 10:32] LABS: HCG Qualitative,Urine Negative (Negative)
== END 2018-01-14 10:54 | disposition home or self-care (01) ==
LOC: ED 08:53
DX: E10.65 Type 1 diabetes mellitus with hyperglycemia (principal); N76.0 Acute vaginitis; G43.909 Migraine, unspecified, not intractable, without status migrainosus
CPT/HCPCS: 81025; 82962; 87210; 87591; 99284

== ENCOUNTER 2018-02-11 08:51 | Emergency (ER) | payer MEDICAID ==
[2018-02-11 09:09] VITALS: BP 126/78
--- NOTE | 2018-02-11 09:38 | Emergency Department Report ---
ED Female HPI - General Chief complaint: Urogenital-Female Stated complaint: YEAST INFECTION Time Seen by Provider: 02/11/18 09:32 Source: patient Mode of arrival: Ambulatory Limitations: No Limitations - History of Present Illness Initial comments: Patient is 32 years old female with history of diabetes. Patient presented to the ER with vaginal discharge described as yeast infection. Patient stated that she's been having this cheesy creamy discharge with itching. Patient stated that she's been having this recurrent issue every time when she have her period. Patient denied any fever, nausea or vomiting. MD Complaint: vaginal discharge - Related Data Previous Rx's Medication Instructions Recorded Last Taken Type Insulin NPH/Regular [NovoLIN 70/30] 15 unit SUB-Q BIDDIAB 30 Days 12/19/16 Unknown Rx units Amoxicillin 500 mg PO BID #20 capsule 08/06/17 Unknown Rx Naproxen [Naprosyn] 500 mg PO BID PRN #20 tablet 08/06/17 Unknown Rx Fluconazole [Diflucan TAB] 150 mg PO Q72HR #2 tablet 01/14/18 Unknown Rx metroNIDAZOLE [Flagyl] 500 mg PO Q12HR #14 tab 01/14/18 Unknown Rx Fluconazole [Diflucan TAB] 100 mg PO BID #6 tablet 02/11/18 Unknown Rx Allergies Allergy/AdvReac Type Severity Reaction Status Date / Time No Known Allergies Allergy Verified 06/26/13 20:21 ED Review of Systems ROS: Stated complaint: YEAST INFECTION Other details as noted in HPI Comment: All other systems reviewed and negative Constitutional: denies: chills, fever Respiratory: denies: cough Gastrointestinal: denies: abdominal pain, nausea Genitourinary: denies: dysuria, frequency, abnormal menses ED Past Medical Hx - Past Medical History Previous Medical History?: Yes Hx Diabetes: Yes Hx Headaches / Migraines: Yes Additional medical history: yeast infections - Surgical History Past Surgical History?: No - Social History Smoking Status: Never Smoker Substance Use Type: Alcohol - Medications Home Medications: Home Medications Medication Instructions Recorded Confirmed Last Taken Type Insulin NPH/Regular [NovoLIN 70/30] 15 unit SUB-Q BIDDIAB 30 Days 12/19/16 Unknown Rx units Amoxicillin 500 mg PO BID #20 capsule 08/06/17 Unknown Rx Naproxen [Naprosyn] 500 mg PO BID PRN #20 tablet 08/06/17 Unknown Rx Fluconazole [Diflucan TAB] 150 mg PO Q72HR #2 tablet 01/14/18 Unknown Rx metroNIDAZOLE [Flagyl] 500 mg PO Q12HR #14 tab 01/14/18 Unknown Rx Fluconazole [Diflucan TAB] 100 mg PO BID #6 tablet 02/11/18 Unknown Rx ED Physical Exam - General Limitations: No Limitations General appearance: alert, in no apparent distress - Respiratory Respiratory exam: Present: normal lung sounds bilaterally - Cardiovascular Cardiovascular Exam: Present: normal heart sounds - GI/Abdominal GI/Abdominal exam: Present: soft. Absent: distended, tenderness, guarding, rebound - Bi-manual exam: Present: other (addition, patient does not want pelvic examination) ED Course Vital Signs 02/11/18 09:05 Temperature 98.8 F Pulse Rate 82 Respiratory 18 Rate Blood Pressure 126/78 O2 Sat by Pulse 100 Oximetry Critical care attestation.: If time is entered above; I have spent that time in minutes in the direct care of this critically ill patient, excluding procedure time. ED Disposition Clinical Impression: Vaginal candidiasis Disposition: DC- TO HOME OR SELFCARE Is pt being admited?: No Condition: Stable Instructions: Vulvovaginal Candidiasis (ED) Prescriptions: Fluconazole [Diflucan TAB] 100 mg PO BID #6 tablet Referrals: PRIMARY CARE, [Primary Care Provider] - 3-5 Days
== END 2018-02-11 09:48 | disposition home or self-care (01) ==
LOC: ED 08:51
DX: B37.3 Candidiasis of vulva and vagina (principal); E11.9 Type 2 diabetes mellitus without complications; G43.909 Migraine, unspecified, not intractable, without status migrainosus
CPT/HCPCS: 99282

== ENCOUNTER 2018-05-20 21:44 | Emergency (ER) | payer MEDICAID ==
[2018-05-20 23:34] LABS: Basophils # (Auto) 0.1 K/mm3 (0.0-0.1); Basophils % (Auto) 0.9 % (0.0-1.8); Eosinophils # (Auto) 0.1 K/mm3 (0.0-0.4); Eosinophils % (Auto) 2.2 % (0.0-4.3); Hematocrit 38.3 % (30.3-42.9); Mean Corpuscular HGB Conc 34 % (30-34); Mean Corpuscular Hemoglobin 29 pg (28-32); Mean Corpuscular Volume 86 fl (79-97); Monocytes # (Auto) 0.5 K/mm3 (0.0-0.8); Monocytes % (Auto) 7.9 % (0.0-7.3); Platelet Count 194 K/mm3 (140-440); Red Blood Count 4.43 M/mm3 (3.65-5.03); Red Cell Distribution Width 13.9 % (13.2-15.2)
--- NOTE | 2018-05-21 00:05 | Emergency Department Report ---
ED Female HPI - General Chief complaint: Hypoglycemia Stated complaint: POSS UTI Time Seen by Provider: 05/21/18 00:04 Source: patient Mode of arrival: Ambulatory Limitations: No Limitations - History of Present Illness Initial comments: Patient is a 32-year-old female presents to emergency room for possible UTI, dysuria and epigastric pain. Patient also states she's got vaginal discharge that is a white to yellow discharge. Patient denies vaginal pain and irritation. Patient states the dysuria is minor. Patient states the epigastric pain is a 2 out of 10 and is worse with palpation and certain foods. Patient states that the epigastric pain is better with rest. Patient denies fever and chills. Patient denies chest pain or shortness of breath. Patient states that the epigastric pain started about 4 days ago. MD Complaint: vaginal discharge, dysuria -: Sudden Location: other (epigastric pain) Radiation: non-radiating Severity: mild Severity scale (0 -10): 2 Quality: burning Consistency: constant Are you Now?: No Associated Symptoms: vaginal discharge, abdominal pain, dysuria. denies: vaginal bleeding, nausea/vomiting, fever/chills, headaches, loss of appetite, hematuria, rash, seizure, shortness of breath, syncope, weakness - Related Data Sexually active: Yes Previous Rx's Medication Instructions Recorded Last Taken Type Insulin NPH/Regular [NovoLIN 70/30] 15 unit SUB-Q BIDDIAB 30 Days 12/19/16 Unknown Rx units Amoxicillin 500 mg PO BID #20 capsule 08/06/17 Unknown Rx Naproxen [Naprosyn] 500 mg PO BID PRN #20 tablet 08/06/17 Unknown Rx metroNIDAZOLE [Flagyl] 500 mg PO Q12HR #14 tab 01/14/18 Unknown Rx Fluconazole [Diflucan TAB] 100 mg PO BID #6 tablet 02/11/18 Unknown Rx Esomeprazole Magnesium [Nexium 40 mg PO DAILY #30 capsule.dr 05/21/18 Unknown Rx 24Hr] Fluconazole [Diflucan TAB] 150 mg PO Q72HR #2 tablet 05/21/18 Unknown Rx Sulfamethoxazole/Trimethoprim 1 each PO Q12HR 10 Days #20 tablet 05/21/18 Unknown Rx [Bactrim DS TAB] Allergies Allergy/AdvReac Type Severity Reaction Status Date / Time No Known Allergies Allergy Verified 06/26/13 20:21 ED Review of Systems ROS: Stated complaint: POSS UTI Other details as noted in HPI Constitutional: denies: chills, fever Eyes: denies: eye pain, eye discharge, vision change ENT: denies: ear pain, throat pain Respiratory: denies: cough, shortness of breath, wheezing Cardiovascular: denies: chest pain, palpitations Endocrine: no symptoms reported Gastrointestinal: abdominal pain. denies: nausea, diarrhea Genitourinary: denies: urgency, dysuria, discharge Musculoskeletal: denies: back pain, joint swelling, arthralgia Skin: denies: rash, lesions Neurological: denies: headache, weakness, paresthesias Psychiatric: denies: anxiety, depression Hematological/Lymphatic: denies: easy bleeding, easy bruising ED Past Medical Hx - Past Medical History Previous Medical History?: Yes Hx Diabetes: Yes Hx Headaches / Migraines: Yes Additional medical history: yeast infections - Surgical History Past Surgical History?: No - Family History Family history: no significant - Social History Smoking Status: Never Smoker Substance Use Type: None - Medications Home Medications: Home Medications Medication Instructions Recorded Confirmed Last Taken Type Insulin NPH/Regular [NovoLIN 70/30] 15 unit SUB-Q BIDDIAB 30 Days 12/19/16 Unknown Rx units Amoxicillin 500 mg PO BID #20 capsule 08/06/17 Unknown Rx Naproxen [Naprosyn] 500 mg PO BID PRN #20 tablet 08/06/17 Unknown Rx metroNIDAZOLE [Flagyl] 500 mg PO Q12HR #14 tab 01/14/18 Unknown Rx Fluconazole [Diflucan TAB] 100 mg PO BID #6 tablet 02/11/18 Unknown Rx Esomeprazole Magnesium [Nexium 40 mg PO DAILY #30 capsule.dr 05/21/18 Unknown Rx 24Hr] Fluconazole [Diflucan TAB] 150 mg PO Q72HR #2 tablet 05/21/18 Unknown Rx Sulfamethoxazole/Trimethoprim 1 each PO Q12HR 10 Days #20 tablet 05/21/18 Unknown Rx [Bactrim DS TAB] ED Physical Exam - General Limitations: No Limitations General appearance: alert, in no apparent distress - Head Head exam: Present: atraumatic, normocephalic - Eye Eye exam: Present: normal appearance - ENT ENT exam: Present: mucous membranes moist - Neck Neck exam: Present: normal inspection - Respiratory Respiratory exam: Present: normal lung sounds bilaterally. Absent: respiratory distress - Cardiovascular Cardiovascular Exam: Present: regular rate, normal rhythm. Absent: systolic murmur, diastolic murmur, rubs, gallop - GI/Abdominal GI/Abdominal exam: Present: soft, tenderness (mild epigastric tenderness.), normal bowel sounds - Extremities Exam Extremities exam: Present: normal inspection - Back Exam Back exam: Present: normal inspection - Neurological Exam Neurological exam: Present: alert, oriented X3 - Psychiatric Psychiatric exam: Present: normal affect, normal mood - Skin Skin exam: Present: warm, dry, intact, normal color. Absent: rash ED Course Vital Signs 05/20/18 05/20/18 05/21/18 22:57 23:59 00:00 Temperature 99 F 98.8 F Pulse Rate 101 H 87 Respiratory 20 19 Rate Blood Pressure 129/93 117/86 Blood Pressure 131/85 [Left] O2 Sat by Pulse 97 98 99 Oximetry - Reevaluation(s) Reevaluation #1: Patient examined. Patient's labs are unremarkable except for hyperglycemia,UA is pending 05/21/18 00:05 Repeat glucose checks are back to normal. UA shows small leukocyte esterases and is consistent with a UTI. 05/21/18 00:59 Reevaluation #2: Labs and Results with Patient. Patient Is Stable for Discharge. Patient Was Discharged Home. Patient Given Discharge Instructions. 05/21/18 00:59 ED Medical Decision Making - Lab Data Result diagrams: 05/20/18 23:17 05/20/18 23:17 - Medical Decision Making Patient is a 32-year-old female presents to [facility] with complaints of a white vaginal discharge and dysuria. Patient also complained of epigastric pain. Findings consistent with a UTI and vaginal discharge and gastritis. Patient will be discharged home. Patient given discharge instructions. Patient return to ER instructions. Patient voiced understanding of instructions. Patient also given medication instructions. Patient advised to take medications as directed. Patient also advised to follow up with her IT TECHNICIAN and primary care. - Differential Diagnosis uti. vaginal discharge. yeast. dysruia. gerd. Critical care attestation.: If time is entered above; I have spent that time in minutes in the direct care of this critically ill patient, excluding procedure time. ED Disposition Clinical Impression: Dysuria, Epigastric pain, Vaginal discharge, Hypoglycemia Gastritis Qualifiers: Gastritis type: unspecified gastritis Chronicity: acute Gastritis bleeding: without bleeding Qualified Code(s): K29.00 - Acute gastritis without bleeding Disposition: TO HOME OR SELFCARE Is pt being admited?: No Does the pt Need Aspirin: No Condition: Stable Instructions: Gastritis (ED), Gastroesophageal Reflux in Children (ED), Urinary Tract Infection in Women (ED), Vulvovaginal Candidiasis (ED), Dysuria ( ED) Additional Instructions: Patient follow up with primary care in 2-3 days. Patient to follow up with OB/ BUSINESS INTELLIGENCE ANALYST in 2-3 days. Patient to return to ER condition worsens. Patient to take meds as directed. Patient to rest. Patient needed GERD diet. Patient to increase water. Patient to take Tylenol when necessary for pain Prescriptions: Esomeprazole Magnesium [Nexium 24Hr] 40 mg PO DAILY #30 capsule. Sulfamethoxazole/Trimethoprim [Bactrim DS TAB] 1 each PO Q12HR 10 Days #20 tablet Fluconazole [Diflucan TAB] 150 mg PO Q72HR #2 tablet Referrals: PRIMARY CARE [Primary Care Provider] - 2-3 Days Time of Disposition: :02
[2018-05-21 00:08] LABS: Albumin 3.9 g/dL (3.9-5); Calcium 9.2 mg/dL (8.4-10.2)
[2018-05-21 00:42] LABS: HCG Qualitative,Urine Negative (Negative)
[2018-05-21 00:47] LABS: Bilirubin,Urine NEG (Negative); Blood,Urine NEG (Negative); Calcium Oxalate Crystals,Urine 1+; Mucus,Urine FEW /HPF
[2018-05-21 00:48] LABS: Color,Urine Yellow (Yellow)
[2018-05-21 00:57] VITALS: BP 117/86
== END 2018-05-21 01:15 | disposition home or self-care (01) ==
LOC: ED 21:44
DX: K29.00 Acute gastritis without bleeding (principal); N89.8 Other specified noninflammatory disorders of vagina; E11.649 Type 2 diabetes mellitus with hypoglycemia without coma; R10.13 Epigastric pain; R30.0 Dysuria; G43.909 Migraine, unspecified, not intractable, without status migrainosus; Z79.4 Long term (current) use of insulin
CPT/HCPCS: 36415; 80053; 81001; 81025; 82805; 82962; 83690; 85025; 99283

== ENCOUNTER 2019-01-26 12:08 | Emergency (ER) | payer MEDICAID ==
--- NOTE | 2019-01-26 12:28 | Emergency Department Report ---
Blank Doc - Documentation Documentation: 33 y o fema;e presents to ED stating her insulin pump wasnt working this am went to store and bought a pump and finally took insulin but her gluc was high admits nausea labs ACC
[2019-01-26 13:42] LABS: Bilirubin,Urine NEG (Negative); Blood,Urine NEG (Negative); Color,Urine Yellow (Yellow); Mucus,Urine FEW /HPF; Protein,Urine <15 mg/dL mg/dL (Negative); Urobilinogen,Urine < 2.0 mg/dL (<2.0); WBC,Urine < 1.0 /HPF (0.0-6.0)
[2019-01-26 13:46] LABS: Basophils # (Auto) 0.1 K/mm3 (0.0-0.1); Basophils % (Auto) 0.8 % (0.0-1.8); Eosinophils # (Auto) 0.2 K/mm3 (0.0-0.4); Eosinophils % (Auto) 2.7 % (0.0-4.3); Hemoglobin 12.7 gm/dl (10.1-14.3); Lymphocytes # (Auto) 2.5 K/mm3 (1.2-5.4); Lymphocytes % (Auto) 38.2 % (13.4-35.0); Mean Corpuscular HGB Conc 33 % (30-34); Mean Corpuscular Volume 87 fl (79-97); Monocytes # (Auto) 0.5 K/mm3 (0.0-0.8); Monocytes % (Auto) 7.6 % (0.0-7.3); Platelet Count 214 K/mm3 (140-440); Red Blood Count 4.36 M/mm3 (3.65-5.03); Red Cell Distribution Width 13.7 % (13.2-15.2)
[2019-01-26 13:51] LABS: BUN/Creatinine Ratio 15; Blood Urea Nitrogen 12 mg/dL (7-17); Calcium 8.3 mg/dL (8.4-10.2); Hemolysis Index 10
[2019-01-26] MEDS ORDERED: NACL 0.9% 1000 ML 1,000 ML IV ONE (16:07)
--- NOTE | 2019-01-26 16:07 | Emergency Department Report ---
ED General Adult HPI - General Chief complaint: Hyperglycemia Stated complaint: DIABETIC/INSULIN PUMP MALFUNCTION Time Seen by Provider: 01/26/19 12:25 Source: patient Mode of arrival: Ambulatory Limitations: No Limitations - History of Present Illness Initial comments: This is a 33-year-old after [place] female who presents to the emergency room with hyperglycemia. Past medical history of diabetes and migraines. The patient states she ate a chicken biscuit and orange juice this morning. She checked her glucose level while at work and she was in the 400s. The patient states she wear a insulin pump which she think has malfunctioned. She gave herself 15 units of regular insulin around 12:00. Patient states initially she felt nauseous which is now subsided. Possible DKA. -: This afternoon Radiation: non-radiation Severity scale (0 -10): 0 Improves with: none Worsens with: none Associated Symptoms: denies other symptoms Treatments Prior to Arrival: none - Related Data Previous Rx's Medication Instructions Recorded Last Taken Type Insulin NPH/Regular [NovoLIN 70/30] 15 unit SUB-Q BIDDIAB 30 Days 12/19/16 Unkno wn Rx units Amoxicillin 500 mg PO BID #20 capsule 08/06/17 Unknown Rx Naproxen [Naprosyn] 500 mg PO BID PRN #20 tablet 08/06/17 Unknown Rx metroNIDAZOLE [Flagyl] 500 mg PO Q12HR #14 tab 01/14/18 Unknown Rx Fluconazole [Diflucan TAB] 100 mg PO BID #6 tablet 02/11/18 Unknown Rx Esomeprazole Magnesium [Nexium 40 mg PO DAILY #30 capsule. 05/21/18 Unknown Rx 24Hr] Fluconazole [Diflucan TAB] 150 mg PO Q72HR #2 tablet 05/21/18 Unknown Rx Sulfamethoxazole/Trimethoprim 1 each PO Q12HR 10 Days #20 tablet 05/21/18 Unknown Rx [Bactrim DS TAB] Allergies Allergy/AdvReac Type Severity Reaction Status Date / Time No Known Allergies Allergy Verified 06/26/13 20:21 ED Review of Systems ROS: Stated complaint: DIABETIC/INSULIN PUMP MALFUNCTION Other details as noted in HPI Constitutional: denies: chills, fever Respiratory: denies: cough, shortness of breath, wheezing Cardiovascular: denies: chest pain, palpitations Endocrine: increased thirst. denies: excessive sweating, flushing, intolerance to cold, intolerance to heat, increased hunger, increased urine, unexplained weight gain, unexplained weight loss Gastrointestinal: denies: abdominal pain, nausea, diarrhea Skin: denies: rash, lesions Neurological: denies: headache, weakness, paresthesias Psychiatric: denies: anxiety, depression ED Past Medical Hx - Past Medical History Previous Medical History?: Yes Hx Hypertension: No Hx CVA: No Hx Heart Attack/AMI: No Hx Congestive Heart Failure: No Hx Diabetes: Yes Hx Deep Vein Thrombosis: No Hx Pulmonary Embolism: No Hx GERD: No Hx Liver Disease: No Hx Renal Disease: No Hx of Cancer: No Hx Sickle Cell Disease: No Hx Arthritis: No Hx Headaches / Migraines: Yes Hx Seizures: No Hx Kidney Stones: No Hx Psychiatric Treatment: No Hx Asthma: No Hx COPD: No Hx Tuberculosis: No Hx Dementia: No Hx HIV: No Additional medical history: yeast infections - Surgical History Past Surgical History?: No Hx Coronary Stent: No Hx Open Heart Surgery: No Hx Pacemaker: No Hx Internal Defibrillator: No Hx Cholecystectomy: No Hx Appendectomy: No Hx Breast Surgery: No - Social History Smoking Status: Never Smoker Substance Use Type: None - Medications Home Medications: Home Medications Medication Instructions Recorded Confirmed Last Taken Type Insulin NPH/Regular [NovoLIN 70/30] 15 unit SUB-Q BIDDIAB 30 Days 12/19/16 Unknown Rx units Amoxicillin 500 mg PO BID #20 capsule 08/06/17 Unknown Rx Naproxen [Naprosyn] 500 mg PO BID PRN #20 tablet 08/06/17 Unknown Rx metroNIDAZOLE [Flagyl] 500 mg PO Q12HR #14 tab 01/14/18 Unknown Rx Fluconazole [Diflucan TAB] 100 mg PO BID #6 tablet 02/11/18 Unknown Rx Esomeprazole Magnesium [Nexium 40 mg PO DAILY #30 capsule.dr 05/21/18 Unknown Rx 24Hr] Fluconazole [Diflucan TAB] 150 mg PO Q72HR #2 tablet 05/21/18 Unknown Rx Sulfamethoxazole/Trimethoprim 1 each PO Q12HR 10 Days #20 tablet 05/21/18 Unknown Rx [Bactrim DS TAB] ED Physical Exam - General Limitations: No Limitations General appearance: alert, in no apparent distress, obese - Respiratory Respiratory exam: Present: normal lung sounds bilaterally. Absent: respiratory distress - Cardiovascular Cardiovascular Exam: Present: regular rate, normal rhythm. Absent: systolic murmur, diastolic murmur, rubs, gallop - GI/Abdominal GI/Abdominal exam: Present: soft, normal bowel sounds. Absent: distended, tenderness, guarding, rebound - Neurological Exam Neurological exam: Present: alert, oriented X3 - Psychiatric Psychiatric exam: Present: normal affect, normal mood - Skin Skin exam: Present: warm, dry, intact, normal color. Absent: rash ED Course Vital Signs 01/26/19 01/26/19 12:25 17:25 Temperature 98.8 F Pulse Rate 89 81 Respiratory 16 16 Rate Blood Pressure 128/87 Blood Pressure 124/85 [Left] O2 Sat by Pulse 99 99 Oximetry ED Medical Decision Making - Lab Data Result diagrams: 01/26/19 13:09 01/26/19 13:09 Lab Results 01/26/19 01/26/19 01/26/19 Range/Units 12:22 13:08 13:09 WBC 6.6 (4.5-11.0) K/mm3 RBC 4.36 (3.65-5.03) M/mm3 Hgb 12.7 (10.1-14.3) gm/dl Hct 38.0 (30.3-42.9) % MCV 87 (79-97) fl MCH 29 (28-32) pg MCHC 33 (30-34) % RDW 13.7 (13.2-15.2) % Plt Count 214 (140-440) K/mm3 Lymph % (Auto) 38.2 H (13.4-35.0) % [place] % (Auto) 7.6 H (0.0-7.3) % Eos % (Auto) 2.7 (0.0-4.3) % Baso % (Auto) 0.8 (0.0-1.8) % Lymph # 2.5 (1.2-5.4) K/mm3 [place] # 0.5 (0.0-0.8) K/mm3 Eos # 0.2 (0.0-0.4) K/mm3 Baso # 0.1 (0.0-0.1) K/mm3 Seg Neutrophils % 50.7 (40.0-70.0) % Seg Neutrophils # 3.3 (1.8-7.7) K/mm3 VBG pH 7.378 (7.320-7.420) Sodium (137-145) mmol/L Potassium (3.6-5.0) mmol/L Chloride (98-107) mmol/L Carbon Dioxide (22-30) mmol/L Anion Gap mmol/L BUN (7-17) mg/dL Creatinine (0.7-1.2) mg/dL Estimated GFR ml/min BUN/Creatinine Ratio % Glucose (65-100) mg/dL POC Glucose 342 H (70-105) Calcium (8.4-10.2) mg/dL HCG, Qual (Negative) Urine Color (Yellow) Urine Turbidity (Clear) Urine pH (5.0-7.0) Ur Specific [place] (1.003-1.030) Urine Protein (Negative) mg/dL Urine Glucose (UA) (Negative) mg/dL Urine Ketones (Negative) mg/dL Urine Blood (Negative) Urine Nitrite (Negative) Urine Bilirubin (Negative) Urine Urobilinogen (<2.0) mg/dL Ur Leukocyte Esterase (Negative) Urine WBC (Auto) (0.0-6.0) /HPF Urine RBC (Auto) (0.0-6.0) /HPF U Epithel Cells (Auto) (0-13.0) /HPF Urine Mucus /HPF 01/26/19 01/26/19 01/26/19 Range/Units 13:09 13:09 13:21 WBC (4.5-11.0) K/mm3 RBC (3.65-5.03) M/mm3 Hgb (10.1-14.3) gm/dl Hct (30.3-42.9) % MCV (79-97) fl MCH (28-32) pg MCHC (30-34) % RDW (13.2-15.2) % Plt Count (140-440) K/mm3 Lymph % (Auto) (13.4-35.0) % [place] % (Auto) (0.0-7.3) % Eos % (Auto) (0.0-4.3) % Baso % (Auto) (0.0-1.8) % Lymph # (1.2-5.4) K/mm3 [place] # (0.0-0.8) K/mm3 Eos # (0.0-0.4) K/mm3 Baso # (0.0-0.1) K/mm3 Seg Neutrophils % (40.0-70.0) % Seg Neutrophils # (1.8-7.7) K/mm3 VBG pH (7.320-7.420) Sodium 134 L (137-145) mmol/L Potassium 4.0 (3.6-5.0) mmol/L Chloride 103.2 (98-107) mmol/L Carbon Dioxide 22 (22-30) mmol/L Anion Gap 13 mmol/L BUN 12 (7-17) mg/dL Creatinine 0.8 (0.7-1.2) mg/dL Estimated GFR > 60 ml/min BUN/Creatinine Ratio 15 % Glucose 275 H (65-100) mg/dL POC Glucose (70-105) Calcium 8.3 L (8.4-10.2) mg/dL HCG, Qual Negative (Negative) Urine Color Yellow (Yellow) Urine Turbidity Clear (Clear) Urine pH 6.0 (5.0-7.0) Ur Specific [place] 1.022 (1.003-1.030) Urine Protein <15 mg/dl (Negative) mg/dL Urine Glucose (UA) >=500 (Negative) mg/dL Urine Ketones Tr (Negative) mg/dL Urine Blood Neg (Negative) Urine Nitrite Neg (Negative) Urine Bilirubin Neg (Negative) Urine Urobilinogen < 2.0 (<2.0) mg/dL Ur Leukocyte Esterase Neg (Negative) Urine WBC (Auto) < 1.0 (0.0-6.0) /HPF Urine RBC (Auto) 1.0 (0.0-6.0) /HPF U Epithel Cells (Auto) 2.0 (0-13.0) /HPF Urine Mucus Few /HPF 01/26/19 Range/Units 15:34 WBC (4.5-11.0) K/mm3 RBC (3.65-5.03) M/mm3 Hgb (10.1-14.3) gm/dl Hct (30.3-42.9) % MCV (79-97) fl MCH (28-32) pg MCHC (30-34) % RDW (13.2-15.2) % Plt Count (140-440) K/mm3 Lymph % (Auto) (13.4-35.0) % [place] % (Auto) (0.0-7.3) % Eos % (Auto) (0.0-4.3) % Baso % (Auto) (0.0-1.8) % Lymph # (1.2-5.4) K/mm3 [place] # (0.0-0.8) K/mm3 Eos # (0.0-0.4) K/mm3 Baso # (0.0-0.1) K/mm3 Seg Neutrophils % (40.0-70.0) % Seg Neutrophils # (1.8-7.7) K/mm3 VBG pH (7.320-7.420) Sodium (137-145) mmol/L Potassium (3.6-5.0) mmol/L Chloride (98-107) mmol/L Carbon Dioxide (22-30) mmol/L Anion Gap mmol/L BUN (7-17) mg/dL Creatinine (0.7-1.2) mg/dL Estimated GFR ml/min BUN/Creatinine Ratio % Glucose (65-100) mg/dL POC Glucose 133 H (70-105) Calcium (8.4-10.2) mg/dL HCG, Qual (Negative) Urine Color (Yellow) Urine Turbidity (Clear) Urine pH (5.0-7.0) Ur Specific [place] (1.003-1.030) Urine Protein (Negative) mg/dL Urine Glucose (UA) (Negative) mg/dL Urine Ketones (Negative) mg/dL Urine Blood (Negative) Urine Nitrite (Negative) Urine Bilirubin (Negative) Urine Urobilinogen (<2.0) mg/dL Ur Leukocyte Esterase (Negative) Urine WBC (Auto) (0.0-6.0) /HPF Urine RBC (Auto) (0.0-6.0) /HPF U Epithel Cells (Auto) (0-13.0) /HPF Urine Mucus /HPF - Medical Decision Making Patient was examined by this provider. History of DM and migraines. Reports possible malfunction of insulin pot. She administered 15 units of regular insulin. Obtained BMP, CBC, UA, & blood gas. Review labs. Glucose 342 on admission. IV site obtained. Given NS 1L bolus x once. Glucose 133 after treat ment and reports feeling better. Continue current insulin dose and f/u with Endo or PCP in 24-72 hours. Discussed plan with patient and agreed to plan. No further questions noted by the patient. Discharged home in stable condition. Critical care attestation.: If time is entered above; I have spent that time in minutes in the direct care of this critically ill patient, excluding procedure time. ED Disposition Clinical Impression: Hyperglycemia Disposition: DC- TO HOME OR SELFCARE Is pt being admited?: No Does the pt Need Aspirin: No Condition: Stable Instructions: Diabetic Hyperglycemia (ED) Additional Instructions: Never discontinue insulin without discussion with doctor. Low blood sugar is often accompanied by symptoms such as tachycardia, sweating, shakiness, intense hunger, or confusion, and must be dealt with promptly by eating a carbohydrate such as apple or drink juice. After self-treatment, blood sugar should be checked if possible. Return to ER or f/u with ER promptly is blood glucose drops below 70 or greater than 150 so that therapy may be adjusted. Eat a carbohydrate snack prior to exercise if blood glucose is less than 100. Follow up with Primary Care Provider in 24-72 days. Referrals: BERHANE RIDLEY MD [Primary Care Provider] - 3-5 Days [facility], [facility] [Provider Group] - 3-5 Days [facility] [Provider Group] - 3-5 Days Forms: Work/School Release Form(ED) Time of Disposition: 16:24
[2019-01-26 17:26] VITALS: BP 124/85
== END 2019-01-26 17:25 | disposition home or self-care (01) ==
LOC: ED 12:08
DX: E11.65 Type 2 diabetes mellitus with hyperglycemia (principal); G43.909 Migraine, unspecified, not intractable, without status migrainosus; Z79.4 Long term (current) use of insulin
CPT/HCPCS: 36415; 80048; 81001; 82805; 82962; 84703; 85025; 96360; 99283; J7030

== ENCOUNTER 2019-07-25 15:16 | Emergency (ER) | payer BC, MEDICAID | END 2019-07-25 22:07 | disposition home or self-care (01) | LOC: ED 15:16 | CPT/HCPCS: 36415; 80053; 81001; 81025; 82805; 82962; 85025 ==

== ENCOUNTER 2019-11-16 09:21 | Emergency (ER) | payer BC, MEDICAID ==
[2019-11-16 09:36] VITALS: BP 125/85
--- NOTE | 2019-11-16 11:05 | Emergency Department Report ---
ED Female HPI - General Chief complaint: Vaginal Bleeding Stated complaint: POSS MISCARRIAGE/CLOTS Time Seen by Provider: 11/16/19 09:58 Source: patient Mode of arrival: Ambulatory Limitations: No Limitations - History of Present Illness Initial comments: This is a 33-year-old female nontoxic, well nourished in appearance, no acute signs of distress presents to the ED with c/o of vaginal bleeding x2 days. Patient stated last menstrual cycle was 09/28/2019. Patient denies any abdominal or pelvic pain. Patient is unsure of . Patient denies any vaginal discharge or foul odor. Patient denies any nausea, vomiting, chest pain, shortness of breathe, fever, chills, headache, stiff neck, numbness, tingling. Patient denies any urinary symptoms. Patient denies any allergies or PMH. MD Complaint: vaginal bleeding -: days(s) Severity scale (0 -10): 0 Improves with: none Worsens with: none Are you Now?: No Associated Symptoms: vaginal bleeding. denies: vaginal discharge, abdominal pain, nausea/vomiting, fever/chills, headaches, loss of appetite, dysuria, h ematuria, rash, seizure, shortness of breath, syncope, weakness - Related Data Sexually active: Yes Previous Rx's Medication Instructions Recorded Last Taken Type Insulin NPH/Regular [NovoLIN 70/30] 15 unit SUB-Q BIDDIAB 30 Days 12/19/16 Unknown Rx units Amoxicillin 500 mg PO BID #20 capsule 08/06/17 Unknown Rx Naproxen [Naprosyn] 500 mg PO BID PRN #20 tablet 08/06/17 Unknown Rx metroNIDAZOLE [Flagyl] 500 mg PO Q12HR #14 tab 01/14/18 Unknown Rx Fluconazole [Diflucan TAB] 100 mg PO BID #6 tablet 02/11/18 Unknown Rx Esomeprazole Magnesium [Nexium 40 mg PO DAILY #30 capsule.dr 05/21/18 Unknown Rx 24Hr] Fluconazole [Diflucan TAB] 150 mg PO Q72HR #2 tablet 05/21/18 Unknown Rx Sulfamethoxazole/Trimethoprim 1 each PO Q12HR 10 Days #20 tablet 05/21/18 Unknown Rx [Bactrim DS TAB] Allergies Allergy/AdvReac Type Severity Reaction Status Date / Time No Known Allergies Allergy Verified 06/26/13 20:21 ED Review of Systems ROS: Stated complaint: POSS MISCARRIAGE/CLOTS Other details as noted in HPI Constitutional: denies: chills, fever Eyes: denies: eye pain, eye discharge, vision change ENT: denies: ear pain, throat pain Respiratory: denies: cough, shortness of breath, wheezing Cardiovascular: denies: chest pain, palpitations Endocrine: no symptoms reported Gastrointestinal: denies: abdominal pain, nausea, diarrhea Genitourinary: abnormal menses. denies: urgency, dysuria, discharge Musculoskeletal: denies: back pain, joint swelling, arthralgia Skin: denies: rash, lesions Neurological: denies: headache, weakness, paresthesias Psychiatric: denies: anxiety, depression Hematological/Lymphatic: denies: easy bleeding, easy bruising ED Past Medical Hx - Past Medical History Previous Medical History?: Yes Hx Hypertension: No Hx CVA: No Hx Heart Attack/AMI: No Hx Congestive Heart Failure: No Hx Diabetes: Yes Hx Deep Vein Thrombosis: No Hx Pulmonary Embolism: No Hx GERD: No Hx Liver Disease: No Hx Renal Disease: No Hx Sickle Cell Disease: No Hx Arthritis: No Hx Headaches / Migraines: Yes Hx Seizures: No Hx Kidney Stones: No Hx Psychiatric Treatment: No Hx Asthma: No Hx COPD: No Hx Tuberculosis: No Hx Dementia: (IDDM) Hx HIV: No Additional medical history: yeast infections - Surgical History Past Surgical History?: No Hx Coronary Stent: No Hx Open Heart Surgery: No Hx Pacemaker: No Hx Internal Defibrillator: No Hx Cholecystectomy: No Hx Appendectomy: No Hx Breast Surgery: No - Social History Smoking Status: Never Smoker Substance Use Type: None - Medications Home Medications: Home Medications Medication Instructions Recorded Confirmed Last Taken Type Insulin NPH/Regular [NovoLIN 70/30] 15 unit SUB-Q BIDDIAB 30 Days 12/19/16 Unknown Rx units Amoxicillin 500 mg PO BID #20 capsule 08/06/17 Unknown Rx Naproxen [Naprosyn] 500 mg PO BID PRN #20 tablet 08/06/17 Unknown Rx metroNIDAZOLE [Flagyl] 500 mg PO Q12HR #14 tab 01/14/18 Unknown Rx Fluconazole [Diflucan TAB] 100 mg PO BID #6 tablet 02/11/18 Unknown Rx Esomeprazole Magnesium [Nexium 40 mg PO DAILY #30 capsule. 05/21/18 Unknown Rx 24Hr] Fluconazole [Diflucan TAB] 150 mg PO Q72HR #2 tablet 05/21/18 Unknown Rx Sulfamethoxazole/Trimethoprim 1 each PO Q12HR 10 Days #20 tablet 05/21/18 Unknown Rx [Bactrim DS TAB] ED Physical Exam - General Limitations: No Limitations General appearance: alert, in no apparent distress - Head Head exam: Present: atraumatic, normocephalic - Eye Eye exam: Present: normal appearance - Neck Neck exam: Present: normal inspection, full ROM. Absent: tenderness, meningismus, lymphadenopathy - GI/Abdominal GI/Abdominal exam: Present: soft, normal bowel sounds. Absent: distended, tenderness, guarding, rebound, rigid, diminished bowel sounds - Extremities Exam Extremities exam: Present: normal inspection, full ROM - Back Exam Back exam: Present: normal inspection, full ROM. Absent: tenderness, CVA tenderness (R), CVA tenderness (L), muscle spasm, paraspinal tenderness, vertebral tenderness, rash noted - Neurological Exam Neurological exam: Present: alert, oriented X3, normal gait - Psychiatric Psychiatric exam: Present: normal affect, normal mood - Skin Skin exam: Present: warm, dry, intact, normal color. Absent: rash ED Course Vital Signs 11/16/19 09:33 Temperature 98.1 F Pulse Rate 97 H Respiratory 18 Rate Blood Pressure 125/85 O2 Sat by Pulse 95 Oximetry - Reevaluation(s) Reevaluation #1: 11/16/19 11:05 Patient is speaking in full sentences with no signs of distress noted. ED Medical Decision Making - Lab Data Result diagrams: 11/16/19 10:30 - Medical Decision Making This is a 33-year-old female presents with abnormal menstrual cycle. Patient is stable and was examined by me. Normal abdominal exam. Negative test. Labs are unremarkable. Patient was instructed to follow-up with a [facility] doctor in 3-5 days or if symptoms worsen and continue return to emergency room as soon as possible. At time of discharge, the patient does not seem toxic or ill in appearance. No acute signs of distress noted. Patient agrees to discharge treatment plan of care. No further questions noted by the patient. Critical care attestation.: If time is entered above; I have spent that time in minutes in the direct care of this critically ill patient, excluding procedure time. ED Disposition Clinical Impression: Menorrhagia Qualifiers: Menorrhagia type: with irregular cycle Qualified Code(s): N92.1 - Excessive and frequent menstruation with irregular cycle Disposition: - TO HOME OR SELFCARE Is pt being admited?: No Does the pt Need Aspirin: No Condition: Stable Instructions: Menorrhagia (ED) Additional Instructions: Follow-up with a OBGYN doctor in 3-5 days or if symptoms worsen and continue return to emergency room as soon as possible. Referrals: PRIMARY CARE, [Primary Care Provider] - 3-5 Days YAHIR ARMSTRONG MD [Staff Physician] - 3-5 Days [facility] [Provider Group] - 3-5 Days Forms: Work/School Release Form(ED)
[2019-11-16 11:06] LABS: Bacteria,Urine 1+ /HPF (Negative); Bilirubin,Urine NEG (Negative); Blood,Urine LG (Negative); Color,Urine Straw (Yellow); Mucus,Urine FEW /HPF; Protein,Urine <15 mg/dL mg/dL (Negative); Urobilinogen,Urine < 2.0 mg/dL (<2.0)
[2019-11-16 11:15] LABS: Basophils % (Auto) 0.7 % (0.0-1.8); Eosinophils # (Auto) 0.2 K/mm3 (0.0-0.4); Eosinophils % (Auto) 2.8 % (0.0-4.3); Hematocrit 41.4 % (30.3-42.9); Lymphocytes # (Auto) 2.2 K/mm3 (1.2-5.4); Lymphocytes % (Auto) 37.7 % (13.4-35.0); Mean Corpuscular HGB Conc 34 % (30-34); Mean Corpuscular Volume 86 fl (79-97); Monocytes # (Auto) 0.5 K/mm3 (0.0-0.8); Monocytes % (Auto) 7.8 % (0.0-7.3); Platelet Count 201 K/mm3 (140-440); Red Blood Count 4.83 M/mm3 (3.65-5.03); Red Cell Distribution Width 14.1 % (13.2-15.2)
== END 2019-11-16 12:27 | disposition home or self-care (01) ==
LOC: ED 09:21
DX: N92.0 Excessive and frequent menstruation with regular cycle (principal); E11.9 Type 2 diabetes mellitus without complications; G43.909 Migraine, unspecified, not intractable, without status migrainosus; Z79.4 Long term (current) use of insulin; Z79.899 Other long term (current) drug therapy
CPT/HCPCS: 36415; 81001; 84702; 85025